=== PATIENT | female | born 1985 | race African-American/Black ===

== ENCOUNTER 2023-04-26 12:41 | Emergency (ER) | payer MEDICAID, OTHER ==
[~2023-04-26] VITALS: Ht 160 cm; Wt 79.5 kg
[~2023-04-26 12:41] MED LIST: ALBU17AE27 IH
[2023-04-26 12:55] VITALS: BP 122/68; PULSE 115; RESP 18; TEMP 101.2
[2023-04-26 13:29] LABS: COVID AG,FIA SOURCE NASAL SWAB
[2023-04-26] MEDS ORDERED: ACETAMINOPHEN 500 MG TABLET PO ONE (13:30)
[2023-04-26 13:51] LABS: SARS-COV2 (COVID) ANTIGEN,FIA Negative (Negative)
[2023-04-26] MEDS ORDERED: PERCT PO (14:26)
[2023-04-26] MEDS ORDERED: IBUP-45 PO (14:26)
[2023-04-26] MEDS ORDERED: MORPHINE SULFATE 4 MG/ML SYRINGE IM ONE (14:30)
[2023-04-26] MEDS ORDERED: HYDROmorphone HCL 2 MG/ML SYRINGE IM ONE (14:30)
[2023-04-26] MEDS ORDERED: LIDOCAINE 2% VISCOUS 15 ML SOLUTION UDCUP PO ONE (14:30)
[2023-04-26] MEDS ORDERED: KETOROLAC TROMETHAMINE 60 MG/2 ML VIAL IM ONE (14:30)
[2023-04-26] MEDS ORDERED: ONDANSETRON HCL 4 MG/2 ML VIAL IM ONE (14:30)
[2023-04-26] MEDS ORDERED: POLY238P PO (14:50)
[2023-04-26] MEDS ORDERED: PSEU-191 PO (14:50)
== END 2023-04-26 15:02 | disposition home or self-care (01) ==
LOC: EMS 12:45
DX: J02.9 Acute pharyngitis, unspecified (principal); J45.909 Unspecified asthma, uncomplicated; F12.90 Cannabis use, unspecified, uncomplicated; Z88.8 Allergy status to other drugs, medicaments and biological substances; Z20.822 Contact with and (suspected) exposure to COVID-19
CPT/HCPCS: 99284; 87426; 87430; 96372; J1885; J2270; J2405